=== PATIENT | male | born 1985 | race Caucasian/White ===

== ENCOUNTER 2020-09-03 12:58 | Emergency (ER) | payer BC, SELFPAY ==
--- NOTE | ~2020-09-03 | XR_ITS ---
XR chest 2V DATE: 09/03/2020 14:00 INDICATION: Acute onset of midsternal chest pain. History of hypertension. TECHNIQUE: PA and lateral views COMPARISON: None FINDINGS: Plate and screws are noted along the right clavicle. Normal heart size. No hilar or mediastinal enlargement. No pulmonary infiltrate or consolidation, ple ural effusion or pulmonary vascular congestion or pneumothorax is detected. IMPRESSION: No active cardiopulmonary disease Reviewed, dictated and finalized at location B. DESIGNER
[2020-09-03 13:07] VITALS: BP 167/96; PULSE 77; RESP 18; TEMP 37.1; O2SAT 100
--- NOTE | 2020-09-03 13:12 | ECG_ITS ---
Measurements Intervals [place] Rate: 79 P: 49 MN: 145 QRS: 3 QRSD: 108 T: 22 QT: 399 QTc: 458 Interpretive Statements SINUS RHYTHM POSSIBLE LEFT ATRIAL ENLARGEMENT INCOMPLETE RIGHT BUNDLE BRANCH BLOCK BORDERLINE T WAVE ABNORMALITY- ANTEROLAT/INF LEADS BASELINE ARTIFACT- I, III, AVR, AVL, V3 BORDERLINE ECG Electronically Signed On 09-03-2020 13:16:40 [employer] by Alfred Ray D.O.
[2020-09-03 13:21] LABS: Basophils Absolute Auto 0.1 K/mm3 (0.0-0.1); Basophils Percent Auto 0.6 % (0.2-1.2); Eosinophils Absolute Auto 0.2 K/mm3 (0-0.3); Eosinophils Percent Auto 1.8 % (0-4.4); Hematocrit 46.2 % (42.0-52.0); Hemoglobin 15.9 g/dL (14.0-18.0); Immature Granulocyte Absolute 0.05 K/mm3 (0.00-0.031); Immature Granulocyte Percent A 0.5 % (0-0.5); Lymphocytes Absolute Auto 2.26 K/mm3 (0.9-3.2); Mean Corpuscular HGB Conc 34.4 g/dl (32-36); Mean Corpuscular Hemoglobin 32.3 pg (26-34); Mean Corpuscular Volume 93.9 fl (80-100); Mean Platelet Volume 10.7 fl (7.4-10.4); Monocytes Absolute Auto 0.9 K/mm3 (0.1-0.6); Monocytes Percent Auto 8.3 % (2.6-8.5); Neutrophils Absolute Auto 7.3 K/mm3 (1.3-6.7); Neutrophils Percent Auto 67.8 % (45.5-73.1); Platelet Count Result 190 k/mm3 (150-375); Red Blood Count 4.92 M/mm3 (4.6-6.20); Red Cell Distribution Width 13.4 % (11.5-14.5); White Blood Count 10.8 K/mm3 (4.5-10.0)
[2020-09-03 13:33] LABS: INR 0.9; Partial Thromboplastin Time 25.3 SECONDS (22.3-36.8); Prothrombin Time 12.8 Seconds (11.1-14.7)
[2020-09-03 13:37] LABS: Anion Gap 8 mmol/L (8-16); Blood Urea Nitrogen 11 mg/dL (9-20); Calcium 8.2 mg/dL (8.4-10.2); Carbon Dioxide 29 mmol/L (22-30); Chloride 106 mmol/L (98-107); Estimated CRCL calculation 105 ml/min; Estimated Glomerular Filt Rate > 60; Glucose 99 mg/dL (75-110); Potassium 3.5 mmol/L (3.4-5.0); Sodium 143 mmol/L (137-145)
--- NOTE | 2020-09-03 13:40 | ED.GENADULT ---
HPI - General Adult General Chief complaint: Chest Pain Stated complaint: H TN, Chest pain X 1 week Time Seen by Provider: 09/03/20 13:10 Source: patient and family Mode of arrival: ambulatory Limitations: no limitations History of Present Illness HPI narrative: Patient is a 35-year-old male who presents with left-sided chest pain that has been constant and present for 1 week worse with breathing denies injury trauma URI symptoms. Patient does not take anything for his symptoms presents in no distress. On arrival patient resting comfortably in the room in no distress. Related Data Home Medications Medication Instructions Recorded Confirmed clonazepam 1 mg PO TID 09/03/20 lisinopril 80 mg PO DAILY 09/03/20 Allergies Allergy/AdvReac Type Severity Reaction Status Date / Time vancomycin Allergy Redness of Verified 09/03/20 13:14 Skin Review of Systems Review of Systems: All systems reviewed & are unremarkable except as noted in HPI and below PMFSH Past Medical History Medical History (Updated 09/03/20 @ 16:45 by Ken Hoang PA-C) Coronary artery disease Hypertension Surgical History Surgical History (Updated 09/03/20 @ 13:41 by Ken Hoang PA-C) H/O cardiac catheterization Social History Social History (Updated 09/03/20 @ 13:41 by Ken Hoang PA-C) Smoking status: Former smoker Tobacco type: e-cigarettes/vaping Exam Narrative: Exam Narrative: GENERAL: Well-appearing, well-nourished, and in no acute distress. HEAD: Normocephalic, atraumatic. EYES: PERRLA and EOMI. ENT: Nares clear, no rhinorrhea or epistaxis. Mucous membranes moist. CHEST: Clear to auscultation. No respiratory distress. No wheezes rales or rhonchi HEART: Regular rate and rhythm. No murmur heard. EXTREMITIES: Normal range of motion. No edema. SKIN: Warm, dry, no rash. NEURO: No focal deficits. Alert and oriented x3. PSYCH: Normal mood and affect. Course Course Emergency Course: Patient in the room no high risk changes in the imaging or blood work felt appropriate for discharge home to follow with primary care Vital Signs Vital signs: Vital Signs Temperature 98.7 F 09/03/20 13:07 Pulse Rate 77 09/03/20 13:07 Respiratory Rate 18 09/03/20 13:07 Blood Pressure 167/96 H 09/03/20 13:07 Pulse Oximetry 100 09/03/20 13:07 Temperature 98.7 F 09/03/20 13:07 Pulse Rate 59 L 09/03/20 15:45 Respiratory Rate 17 09/03/20 15:45 Blood Pressure 146/96 H 09/03/20 15:45 Pulse Oximetry 98 09/03/20 15:45 Medical Decision Making MDM Narrative Medical decision making narrative: Paitents EKGs and labs are without significant high risk changes. Cardiac risk facotrs were reviewd. Patient is felt likely to be low risk for ACS and resonable for further risk stratification testing as an outpatient. Pain was not suddne or maximal in onset without tearing or ripping. quality. No other signs or symptoms to suggest aortic dissection. A low-risk Wells criteria is noted. PE is felt to be unlikely. No pneumonia or URI symptoms were seen on evaluation today. Patient is felt to b resonable for continued evaluation as an outpatient. Vital Signs Vital Signs: Vital Signs Temperature 98.7 F 09/03/20 13:07 Pulse Rate 77 09/03/20 13:07 Respiratory Rate 18 09/03/20 13:07 Blood Pressure 167/96 H 09/03/20 13:07 Pulse Oximetry 100 09/03/20 13:07 Temperature 98.7 F 09/03/20 13:07 Pulse Rate 59 L 09/03/20 15:45 Respiratory Rate 17 09/03/20 15:45 Blood Pressure 146/96 H 09/03/20 15:45 Pulse Oximetry 98 09/03/20 15:45 Lab Data Result diagrams: 09/03/20 13:15 09/03/20 13:15 Labs: Lab Results 09/03/20 09/03/20 09/03/20 Range/Units 13:15 13:15 13:15 WBC 10.8 H (4.5-10.0) K/mm3 RBC 4.92 (4.6-6.20) M/mm3 Hgb 15.9 (14.0-18.0) g/dL Hct 46.2 (42.0-52.0) % MCV 93.9 (80-100) fl MCH 32.3 (26-34) pg MCHC 34.
[2020-09-03 13:49] LABS: Troponin I 0.013 ng/mL (0.000-0.034)
[2020-09-03 14:26] VITALS: PULSE 68
[2020-09-03 14:30] VITALS: BP 148/92; PULSE 62; RESP 20; O2SAT 97
[2020-09-03 15:45] VITALS: BP 146/96; PULSE 59; RESP 17; O2SAT 98
[2020-09-03 16:29] LABS: Troponin I 0.017 ng/mL (0.000-0.034)
[2020-09-03 17:10] VITALS: BP 148/92; PULSE 64; RESP 16; O2SAT 98
== END 2020-09-03 17:45 | disposition home or self-care (01) ==
PROVIDERS: Emergency Medicine Emergency Medical Services; Emergency Provider Emergency Medicine; PCP Family Medicine
DX: R07.1 Chest pain on breathing (principal); I25.10 Atherosclerotic heart disease of native coronary artery without angina pectoris; I10 Essential (primary) hypertension; Z87.891 Personal history of nicotine dependence; R94.31 Abnormal electrocardiogram [ECG] [EKG]; I45.10 Unspecified right bundle-branch block
CPT/HCPCS: 36415; 71046; 80048; 84484; 85025; 85610; 85730; 93005; 99284